=== PATIENT | female | born 1945 | race African-American/Black ===

== ENCOUNTER 2021-01-04 18:33 | Inpatient (IN) | payer OTHER ==
[~2021-01-04] VITALS: Ht 154.9 cm; Wt 65.3 kg
--- NOTE | ~2021-01-04 | P ---
[facility] [place] [address] PROCEDURE REPORT Name: MARGA TITUS Room #: 464-P ADM IN M.R.#: [id number] Admission: 01/05/21 Attend Phys: Fam Alicia MD Discharge: Date of : 43 Report #: [id number] THIS REPORT FOR: cc: Danni Sharif MD, Sequita MD McElhinney, Christian C. MD ~ cc: Fam Alicia MD, Izaiah Ramirez MD, SHRAVAN Laguna DATE OF SERVICE: 01/08/2021 PROCEDURE PERFORMED: Colonoscopy with polypectomy. HISTORY OF PRESENT ILLNESS: The patient is a 75-year-old female who was admitted on 01/05/2021 with left-sided abdominal pain. CT scan of the abdomen and pelvis showing left-sided hydronephrosis as well as a distal stone in her ureter, moderate perinephrotic fluid. She was diagnosed with urosepsis. CT also showing a moderate colitis involving the colon. The patient denies any bright red blood per rectum or melena. Has been greater than 5 years ago since her last colonoscopy. Plan is for colonoscopy. DESCRIPTION OF PROCEDURE: The risks and benefits of the procedure were explained to the patient, those risks including but not limited to bleeding, perforation and the risk of sedation. She understood these risks and gave informed consent. Sedation was given using propofol per Anesthesia. Next, a digital rectal exam was initially performed ____ small external hemorrhoids were noted. Next, using an Olympus colonoscope, the scope was placed in the patient's anus and advanced under direct vision to the cecum. The overall prep was good. The cecum and ileocecal valve were normal in appearance. Scattered diverticula were noted in the ascending colon, otherwise normal. The transverse colon and descending colon were normal. There was no evidence of colitis throughout the exam today. A few diverticula were noted in the descending and sigmoid colon. A 6 mm sessile polyp was noted in the sigmoid colon as well. This was removed by snare cautery. The rectal mucosa was normal. The scope was then withdrawn and the procedure terminated. The patient tolerated the procedure well. IMPRESSION: 1. Diverticulosis, mild, scattered throughout the colon. 2. No evidence of colitis on exam today, 3. Sigmoid colon polyp. 4. External hemorrhoids. RECOMMENDATIONS: 1. Await biopsy results. 2. Repeat colonoscopy in [address] [address] PROCEDURE REPORT Name: MARGA TITUS Room #: 464-P [facility] IN .R.#: [id number] Admission: 01/05/21 Attend Phys: Fam Alicia MD Discharge: Date of : 43 Report #: [id number] Thank you for allowing me to participate in her care. By: [id number] Shad Stark MD /nt
[2021-01-04 18:51] VITALS: BP 138/84
[2021-01-04 19:36] LABS: ABSOLUTE NEUTROPHILS 11.1 thou/uL (1.4-8.2); BASOPHILS 0.7 % (0.0-2.0); EOSINOPHILS 0.2 % (0.0-3.0); HEMATOCRIT 43.7 % (37.0-47.0); HEMOGLOBIN 14.3 gm/dL (12.0-15.0); LYMPHOCYTES 3.9 % (24.0-44.0); MCH 30.5 pg (26.0-34.0); MCHC 32.7 g/dL (28.0-37.0); MCV 93.3 fL (80.0-100.0); MONOCYTES 1.1 % (1.0-8.0); PLATELET COUNT 342 thou/uL (150-400); POLYS 94.1 % (36.0-66.0); RBC 4.68 mil/uL (4.20-5.00); RDW 14.8 % (10.5-14.5); WBC 11.8 thou/uL (4.0-11.0)
--- NOTE | 2021-01-04 20:02 | NUR ---
EDWIGE (PT'S SON) [phone]
[2021-01-04 20:05] LABS: CALCIUM 9.7 mg/dL (8.5-10.1); CREATININE 1.2 mg/dL (0.6-1.0); POTASSIUM 4.4 mmol/L (3.5-5.1)
[2021-01-04 20:08] LABS: ALBUMIN 3.6 g/dL (3.4-5.0); TOTAL BILIRUBIN 0.4 mg/dL (0.2-1.0); TOTAL PROTEIN 7.1 g/dL (6.4-8.2)
[2021-01-04 21:50] LABS: URINE BILIRUBIN NEGATIVE (Negative); URINE BLOOD 1+ (Negative); URINE CLARITY CLEAR; URINE COLOR YELLOW; URINE GLUCOSE-RANDOM* TRACE (Negative); URINE KETONES NEGATIVE (Negative); URINE LEUKOCYTES-REFLEX NEGATIVE (Negative); URINE NITRITE-REFLEX NEGATIVE (Negative); URINE PROTEIN (DIPSTICK) TRACE (Negative); URINE SPECIFIC GRAVITY 1.015 (1.005-1.035); URINE UROBILINOGEN 0.2 E.U./dl (0.2-1.0)
[2021-01-04 22:13] LABS: CASTS None Seen /LPF (None Seen); CRYSTALS None Seen /LPF (None Seen); MUCUS 0-3 Light strn/LPF (None Seen); SQUAMOUS 0-3 Few /LPF (0-3); URINE RBC 3-10 Few /HPF (NONE SEEN); URINE WBC-REFLEX 0-5 Rare /HPF (0-5)
[2021-01-05 00:50] VITALS: BP 214/168
[2021-01-05 01:50] VITALS: BP 126/95
--- NOTE | 2021-01-05 03:16 | NUR ---
PT ADMITTED TO THE UNIT WITH C/O LLQ PAIN WORSE YESTERDAY.PT IS FROM HOME AND LIVES WITH SON.PT IS A/O X4.PT IS UP WITH X1 ASSIST.PT HAS A HOOVER IN PLACE.PT IS INCONTINENT.PT IS ON 4L OF O2 VIA NC.PT NEGATIVE FOR COVID.PT IV ACCESS ON RFA AND LT AC.SKIN INTACT WITH NO ISSUES.WILL CONTINUE TO MONITOR
--- NOTE | 2021-01-05 07:39 | EKG ---
[place] [address] [facility] [place] [address] ELECTROCARDIOGRAM REPORT Name: MARGA TITUS Room #: 464-P ADM IN M.R.#: [id number] Admission: 01/05/21 Attend Phys: Daily Bradshaw Discharge: Date of : 43 Report #: [id number] [facility] ED Test Date: 2021-01-04 Test Time: 20:45:09 Pat Name: MARGA TITUS Department: Room: 464 Gender: F Scrap Collector: SUKH : 1945 Requested By: Josette Haile Order Number: [id number] MD: Seth Esposito Measurements Intervals Jackson Rate: 109 P: 80 NJ: 159 QRS: 71 QRSD: 70 T: 18 QT: 369 QTc: 498 Interpretive Statements Sinus tachycardia Inferior infarct, age indeterminate Compared to ECG 03/21/2005 20:14:48 Myocardial infarct finding now present Sinus rhythm no longer present T-wave abnormality no longer present Electronically Signed On 01-05-2021 7:39:42 CDT by Seth Esposito [email or web address] <ELECTRONICALLY SIGNED> By: Seth Esposito MD, [facility] 07/738 44 44 Seth Esposito MD, [facility] /EPI
[2021-01-05 07:47] VITALS: BP 95/67
[2021-01-05 08:47] LABS: HEMATOCRIT 40.4 % (37.0-47.0); MCH 29.8 pg (26.0-34.0); MCHC 32.3 g/dL (28.0-37.0); MCV 92.3 fL (80.0-100.0); RBC 4.38 mil/uL (4.20-5.00); RDW 14.8 % (10.5-14.5); WBC 22.7 thou/uL (4.0-11.0)
[2021-01-05 08:59] LABS: CALCIUM 8.1 mg/dL (8.5-10.1); CREATININE 1.6 mg/dL (0.6-1.0); POTASSIUM 3.7 mmol/L (3.5-5.1)
--- NOTE | 2021-01-05 14:07 | NUR ---
Pt admitted related to renal colic and colitis. Cm reviewed chart and spoke with care team. Cm met with pt and son at bedside this day. Pt resides in a house with her son Raffi with 6 steps to enter and 6 steps to bedroom level inside. 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 They indicated that pt had stroke previously and had gone to [facility] and then home with HH. 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 They indicated that they anticipate pt returning home once medically stable. Pt was seen by urology and had cystoscopy and ureteral stent placement completed by Dr. Rosario this morning. Pt is on IV Zosyn. GI consulted. Cm following regarding dc planning.
[2021-01-05 14:25] VITALS: BP 76/53
--- NOTE | 2021-01-05 14:28 | NUR ---
Patient BP 76/53, reported it to Dr. Alicia
[2021-01-05 16:39] VITALS: BP 149/69
[2021-01-05 21:03] VITALS: BP 139/52
--- NOTE | 2021-01-06 02:17 | NUR ---
ASSESSED AT START OF SHIFT PT RESTING IN BED. C/O PAIN IN ABD. TYELNOL GIVEN. IV INTACT AND FLUIDS INFUSING. PT INCONTINENT. ON 2L OF O2 BASELINE AT HOME. FALL PREC IN PLACE. BSG CHECKED NO COVERAGE. CALL LIGHT AT REACH AND WILL CONT TO MONITOR.
[2021-01-06 03:09] VITALS: BP 129/90
[2021-01-06 08:15] VITALS: BP 138/98
[2021-01-06 09:56] LABS: HEMATOCRIT 41.4 % (37.0-47.0); HEMOGLOBIN 13.1 gm/dL (12.0-15.0); MCH 29.4 pg (26.0-34.0); MCHC 31.5 g/dL (28.0-37.0); MCV 93.1 fL (80.0-100.0); RBC 4.45 mil/uL (4.20-5.00); RDW 15.2 % (10.5-14.5)
[2021-01-06 10:05] LABS: CALCIUM 7.9 mg/dL (8.5-10.1); CREATININE 1.3 mg/dL (0.6-1.0); POTASSIUM 3.6 mmol/L (3.5-5.1)
--- NOTE | 2021-01-06 12:15 | NUR ---
PT IS INCOTINENT WITH URINE AND BLADDER SCAN DONE AFTER PT HAD INCOTINENT HAPPENED AND TRIED ON COMMOND, SHOWING NO URINE LEFT IN BLADDER.
--- NOTE | 2021-01-06 15:09 | NUR ---
CARE TEAM INDICATING THAT PT IS PROGRESSING TOWARD GOAL OF DISCHARGE. PT AND OT WORKED WITH PT AND INDICATED THAT SHE IS SAFE TO DC HOME ONCE MEDICALLY STABLE. THEY BOTH DISCHARGED. GI INDICATING THAT PT CAN HAVE A COLONOSCOPY AN OUTPATIENT. PT CONTINUES ON IV ZOSYN. CM FOLLOWING REGARDING DC PLANNING.
--- NOTE | 2021-01-06 16:03 | NUR ---
PT IS A&O*4, 2L OXYGEN BY NASAL CANNULA HOME OXYGEN LEVEL. PT IS STAND BY ASSISTANCE FOR BEDSIDE COMMODE. WORKED WITH PT AND OT, TOLERANCE WELL. IV ABX HAS BEEN GIVEN PER ORDER AND BLOOD GLUCOSED MONITORED. REPIRATORY THERAPY STARTED TODAY DUE TO COARSE LUNG SOUNDS. INCONTINENT SOMTIMES FOR URINAIRY. NS @100 MLS/HR. WILL KEEP MONITOR PATIENT'S SAFETY.
[2021-01-06 16:36] VITALS: BP 136/91
[2021-01-06 19:43] VITALS: BP 128/86
--- NOTE | 2021-01-07 03:09 | NUR ---
PT CARE ASSUMED WITH PT IN BED WITH SON AT BEDSIDE.PT IS A/O X4 PT IS UP WITH STAND BY ASSIST TO THE BSC.PT REFUSED TO WEAR SOCK AND STAFF EXPLAINED TO PT IS A SAFETY PRECAUTION.PT APPEARED TO BE IN NO ACUTE DISTRESS.WILL CONTINUE TO MONITOR
[2021-01-07 12:09] LABS: HEMATOCRIT 39.6 % (37.0-47.0); HEMOGLOBIN 12.8 gm/dL (12.0-15.0); MCH 29.8 pg (26.0-34.0); MCHC 32.2 g/dL (28.0-37.0); MCV 92.4 fL (80.0-100.0); RBC 4.29 mil/uL (4.20-5.00); RDW 15.5 % (10.5-14.5); WBC 21.1 thou/uL (4.0-11.0)
--- NOTE | 2021-01-07 18:37 | NUR ---
PT ALERT AND ORIENTED TIMES THREE WITH PERIODS OF CONFUSION. VSS, IVF INFUSING PER ORDER. PT C/O PAIN PRN PAIN MEDICATIONS CONTROLLING PAIN WELL. PT UP TO BSC WITH STANDBY ASSIST. PT SCHEDULED FOR GI PROCEDURES TOMORROW. PT SON AT BEDSIDE FOR MOST OF THE SHIFT. WILL CONTINUE TO MONITOR.
[2021-01-07 20:31] VITALS: BP 147/118
--- NOTE | 2021-01-08 03:37 | NUR ---
PT CARE ASSUMED WITH PT IN CHAIR WATCHING TV WITH SON AT BEDSIDE.PT IS A/O X3.PT UP WITH STANDBY ASSIST AND TRYING TO GO OUT TO SMOKE A CIGERET.PT REDIRECTED.PT TOOK DIRTY LINEN FROM ROOM WAITING TO TAKE IT TO HER BASEMENT FOR LAUNDRY.PT REDIRECTED AND ORIENTATE TO HOSPITAL.PT ALSO PULLED OUT IV AND REMOVED TELE .PT HAD BOWEL PREP FOR COLONOSCOPY TODAY.WILL CONTINUE TO MONITOR PER POC
[2021-01-08 04:59] LABS: HEMATOCRIT 40.2 % (37.0-47.0); HEMOGLOBIN 13.2 gm/dL (12.0-15.0); MCH 29.8 pg (26.0-34.0); MCHC 32.7 g/dL (28.0-37.0); RBC 4.42 mil/uL (4.20-5.00); RDW 15.1 % (10.5-14.5); WBC 15.4 thou/uL (4.0-11.0)
[2021-01-08 05:27] LABS: ALBUMIN 2.9 g/dL (3.4-5.0); CALCIUM 8.5 mg/dL (8.5-10.1); POTASSIUM 3.5 mmol/L (3.5-5.1); TOTAL BILIRUBIN 0.6 mg/dL (0.2-1.0); TOTAL PROTEIN 6.7 g/dL (6.4-8.2)
[2021-01-08 07:50] VITALS: BP 140/103
[2021-01-08] MEDS ORDERED: PEPCID20 MG PO (12:34)
[2021-01-08] MEDS ORDERED: LISINOPRIL5 MG PO (12:34)
[2021-01-08] MEDS ORDERED: VESICARE10 M1 PO (12:34)
[2021-01-08] MEDS ORDERED: FLOMAX0.4 MG PO (12:34)
[2021-01-08 16:50] VITALS: BP 140/103
--- NOTE | 2021-01-08 17:24 | NUR ---
Patient NPO at start of shift. Colonscopy completed. She is able to eat regular diet-tolerating well. No pain noted at this time. SOn at bedside.
[2021-01-08 19:56] VITALS: BP 120/94
--- NOTE | 2021-01-09 02:39 | NUR ---
PATIENT AOX2 CONFUSED AND FORGETFUL. PATIENT UNCOOPERATIVE WITH CARE AND MEDS. PATIENT REFUSED IV FLUIDS. PATIENT AMBULATES IN THE ROOM WITH UNSTEADY GAITS.PATIENT HAD CREDIT CARDS, CIGARRETTS, CERTIFIED NURSING ASSISTANT INSTRUCTOR, $20 BILL LOCKED UP IN SECURITY, PATIENT NOTIFIED. FALL PRECAUTION IN PLACE.PATIENT IN BED ASLEEP AT THIS TIME BREATHING REGULR AND UNLABOURED.
[2021-01-09 07:21] VITALS: BP 147/119
[2021-01-09 09:29] LABS: CREATININE 0.9 mg/dL (0.6-1.0); POTASSIUM 3.5 mmol/L (3.5-5.1)
--- NOTE | 2021-01-09 10:01 | NUR ---
PT SITTING UP IN CHAIR THIS AM. PT TOOK MEDS WHOLE WITH WATER. PT DENIES ANY PAIN. PT TELE SHOWES SR AT 95. PT DENIES ANY DIARREAH OR NAUSEA. PT UP TO SHOWER THIS AM WITH STEADY GAIT. PT WANTING TO GO HOME TODAY.
[2021-01-09 10:02] VITALS: BP 147/119
[2021-01-09] MEDS ORDERED: AMOXICILLIN875 MG PO (12:40)
--- NOTE | 2021-01-09 15:30 | NUR ---
NOTIFIED DR. DE SANTIAGO OF PT WANTING TO GET A SCRIPT FOR BREATHING TREATMENTS.
--- NOTE | 2021-01-09 15:40 | NUR ---
PT LEFT VIA W/C TO CAR. PT RECIEVED BELONGINGS VIA SECURITY. PT COMBIVENT SCRIPT WILL BE SENT TO PHARMACY. PT RECIEVED PAPER SCRIPTS ON MEDS.
[2021-01-09] MEDS ORDERED: COMBIVENT INH (15:54)
--- NOTE | 2021-01-11 18:06 | PATH ---
[facility] [address] [place] [address] PATHOLOGY RPT PROCEDURE Name: ARIELASHERON Room #: 464-P [facility] IN .R.#: [id number] Admission: 01/05/21 Date of : 43 Discharge: 01/09/21 Report #: [id number] Path Case #: [id number] [facility] Accession Number: [id number] . 01 Material submitted: . sigmoid colon - SIGMOID COLON POLYP . 01 Clinical history: . RENAL COLIC/COLITIS/COLONOSCOPY . 02 Diagnosis: Polyp, sigmoid colon polyp, endoscopic biopsy: - Tubular adenoma. - Negative for high-grade dysplasia. (IUV:pit; 01/11/2021) QTP 01/11/2021 1622 Local . 02 Electronically signed: . Samia Castañeda MD, Pathologist NPI- [id number] . 01 Gross description: . The specimen is received in formalin, labeled "Sheron Paredes, sigmoid colon polyp". Received is a segment of light brown tissue measuring 0.7 x 0.5 x 0.4 cm in greatest dimensions. The surgical margin is inked and the segment is bisected. The specimen is submitted entirely in cassette A1. (CAA; 01/09/2021) QA/QA 01/09/2021 1746 Local . 02 Pathologist provided ICD-10: D12.5 . 02 CPT . 017418 Specimen Comment: A courtesy copy of this report has been sent to [phone], [phone] Specimen Comment: [phone], Specimen Comment: Report sent to , DR TOURE / DR WALLS Performed at: 01 [facility] [address] [place] [address] [address], [place] [id number] MD Evans Betancur MD Phone: [phone] Performed at: [address] [id number] MD Samia Castañeda MD Phone: [phone]
== END 2021-01-09 15:43 | disposition home or self-care (01) | DRG 853 ==
LOC: ER 18:33 → SICU 01-05 00:11 → 4W 01-05 00:11
PROVIDERS: Nurse Practitioner; Nurse Practitioner Family; Physician Assistant; ADMIT Hospitalist; ATTEND Hospitalist
PROC: 0T778DZ Dilation of Left Ureter with Intraluminal Device, Via Natural or Artificial Opening Endoscopic (ICD-10-PCS; principal; 2021-01-05)
PROC: BT1F1ZZ Fluoroscopy of Left Kidney, Ureter and Bladder using Low Osmolar Contrast (ICD-10-PCS; principal; 2021-01-05)
PROC: 0DBN8ZZ Excision of Sigmoid Colon, Via Natural or Artificial Opening Endoscopic (ICD-10-PCS; 2021-01-08)
DX: A41.51 Sepsis due to Escherichia coli [E. coli] (principal); R65.21 Severe sepsis with septic shock; N17.0 Acute kidney failure with tubular necrosis; N13.6 Pyonephrosis; G45.9 Transient cerebral ischemic attack, unspecified; E87.0 Hyperosmolality and hypernatremia; K57.30 Diverticulosis of large intestine without perforation or abscess without bleeding; K63.5 Polyp of colon; K64.4 Residual hemorrhoidal skin tags; E11.9 Type 2 diabetes mellitus without complications; K52.9 Noninfective gastroenteritis and colitis, unspecified; F17.210 Nicotine dependence, cigarettes, uncomplicated; E03.9 Hypothyroidism, unspecified; R53.81 Other malaise; K59.00 Constipation, unspecified; F32.9 Major depressive disorder, single episode, unspecified; N32.81 Overactive bladder; Z20.822 Contact with and (suspected) exposure to COVID-19; Z88.6 Allergy status to analgesic agent; Z86.73 Personal history of transient ischemic attack (TIA), and cerebral infarction without residual deficits; Z91.19 Patient's noncompliance with other medical treatment and regimen; Z79.899 Other long term (current) drug therapy
CPT/HCPCS: 10045; 50010; 50101; 51767; 56674; 56815; 57160; 58565; 58732; 62110; 62900; 70005